=== PATIENT | male | born 1940 | race Caucasian/White ===

== ENCOUNTER 2016-10-20 07:19 | Outpatient (CLI) | payer MEDICARE ==
--- NOTE | 2016-10-22 11:09 | Vascular Lab Report ---
LOWER EXTREMITY VENOUS DUPLEX: REASON FOR EXAM: Swelling of the lower extremities. COMMENTS ON THE RIGHT: All veins visualized are freely compressible without evidence of internal echogenicity. Flow is spontaneous and phasic throughout. COMMENTS ON THE LEFT: All veins visualized are freely compressible without evidence of internal echogenicity. Flow is spontaneous and phasic throughout. IMPRESSION: No evidence of acute or chronic deep venous thrombosis in either lower extremity.
== END 2016-10-20 07:20 | disposition home or self-care (01) ==
LOC: VAS 07:19
PROVIDERS: ATTEND Urology
DX: M79.89 Other specified soft tissue disorders (principal)
CPT/HCPCS: 93970